=== PATIENT | female | born 1995 | race African-American/Black ===

== ENCOUNTER 2018-01-16 08:45 | Emergency (ER) | payer SELFPAY ==
--- NOTE | 2018-01-16 11:42 | RAD ---
LEFT KNEE 4 VIEWS: HISTORY: Injury. COMPARISON: None. FINDINGS: There is extensive peripatellar soft tissue swelling. Moderate-sized joint effusion. No acute displaced fracture is appreciated. IMPRESSION: Soft tissue swelling may be sequelae of contusion. A moderate joint effusion can be secondary to int ernal derangement. POS: [facility]
== END 2018-01-16 10:23 | disposition home or self-care (01) ==
LOC: MADERS 08:45
DX: S83.92XA Sprain of unspecified site of left knee, initial encounter (principal); X50.9XXA Other and unspecified overexertion or strenuous movements or postures, initial encounter

== ENCOUNTER 2018-07-02 09:39 | Emergency (ER) | payer SELFPAY ==
[2018-07-02 10:08] LABS: Bilirubin Negative (Negative); Blood, Urine Large (Negative); Clarity Slightly Cloudy (Clear); Glucose, Urine (Dipstick) Negative (Negative); Leukocyte Moderate (Negative); Nitrite Negative (Negative); Protein, Urine (Dipstick) 100 mg/dL (Neg-Trace); Urobilinogen 0.2 mg/dL (0.2-1.0)
[2018-07-02 10:11] LABS: Bacteria/HPF 1+ HPF (None Seen)
[2018-07-02 10:11] LABS: Pregnancy Test - Urine (BHCG) Negative (Negative)
[2018-07-02 10:12] LABS: Pregu Control Background? CLEAR/WHITE (CLR/WHITE); Pregu Control Bar Appear? YES (CONTROL BAR)
== END 2018-07-02 10:25 | disposition home or self-care (01) ==
LOC: MADERS 09:39
DX: N39.0 Urinary tract infection, site not specified (principal)
CPT/HCPCS: 81003; 81015; 81025; 87077; 87086; 87186; 99283

== ENCOUNTER 2018-12-28 08:01 | Emergency (ER) | payer SELFPAY | END 2018-12-28 09:00 | disposition left against medical advice (07) | LOC: MADERS 08:01 | DX: R10.9 Unspecified abdominal pain (principal) | CPT/HCPCS: 99283 ==

== ENCOUNTER 2019-01-02 11:43 | Emergency (ER) | payer SELFPAY ==
[2019-01-02 12:33] LABS: Pregu Control Background? CLEAR/WHITE (CLR/WHITE); Pregu Control Bar Appear? YES (CONTROL BAR); Specific Gravity 1.019 (1.002-1.036)
[2019-01-02 12:35] LABS: Pregnancy Test - Urine (BHCG) Negative (Negative)
[2019-01-02] MEDS ORDERED: Dexamethasone 4 MG TAB ONE (12:40)
[2019-01-02] MEDS ORDERED: Ibuprofen 800 MG TAB ONE (12:40)
== END 2019-01-02 12:45 | disposition home or self-care (01) ==
LOC: MADERS 11:43
DX: J02.9 Acute pharyngitis, unspecified (principal); K02.9 Dental caries, unspecified
CPT/HCPCS: 81025; 87081; 87430; 87804; 99283; J8540

== ENCOUNTER 2019-02-11 19:20 | Emergency (ER) | payer SELFPAY | END 2019-02-11 20:33 | disposition left against medical advice (07) | LOC: MADERS 19:20 | DX: M79.10 Myalgia, unspecified site (principal) | CPT/HCPCS: 99283 ==

== ENCOUNTER 2019-06-10 15:49 | Emergency (ER) | payer OTHER, SELFPAY | END 2019-06-10 17:20 | disposition home or self-care (01) | LOC: MADERS 15:49 | DX: J02.9 Acute pharyngitis, unspecified (principal); M54.2 Cervicalgia | CPT/HCPCS: 87081; 87430; 99283 ==